=== PATIENT | female | born 1980 | race American Indian/Alaskan Native ===

== ENCOUNTER 2020-06-30 11:29 | Emergency (ER) | payer BC ==
--- NOTE | 2020-06-30 12:29 | EDM.PDOC ---
Scribed by Yesenia Limon 06/30/20 1229 for Rhiannon Piña MD ED HPI GENERAL MEDICAL PROBLEM - General Chief Complaint: ENT Problem Stated Complaint: HURTS TO SWALLOW Time Seen by Provider: 06/30/20 11:55 Source of Information: Reports: Patient, RN, RN Notes Reviewed History Limitations: Reports: No Limitations - History of Present Illness INITIAL COMMENTS - FREE TEXT/NARRATIVE: Patient presents to ED stating she has a sore throat. She waw exposed to strep throat on Wednesday. Woke up yesterday with some soreness on the right side and then woke up today with it on both sides. She has not tried to eat anything. She has been able to drink some fluids. No fevers or chills. No known other sick contracts. Onset Date: 06/29/20 Duration: Getting Worse Location: Reports: Other (throat) Quality: Reports: Ache Severity: Moderate Improves with: Reports: None Worsens with: Reports: None Associated Symptoms: Reports: No Other Symptoms Treatments [employer]: Reports: NSAIDS throat Pain Score (Numeric/FACES): 5 - Related Data Allergies Allergy/AdvReac Type Severity Reaction Status Date / Time No Known Allergies Allergy Verified 06/30/20 11:47 Home Meds: Home Meds Cholecalciferol (Vitamin D3) [Vitamin D3] 1,000 unit PO DAILY 06/30/20 [History] Rosuvastatin Calcium 10 mg PO BEDTIME 06/30/20 [History] Past Medical History HEENT History: Reports: None Cardiovascular History: Reports: None Respiratory History: Reports: None Gastrointestinal History: Reports: None Genitourinary History: Reports: None KNOWLEDGE ENGINEER History: Reports: None Musculoskeletal History: Reports: None Neurological History: Reports: None Psychiatric History: Reports: None Endocrine/Metabolic History: Reports: None Hematologic History: Reports: None Immunologic History: Reports: None Oncologic (Cancer) History: Reports: None Dermatologic History: Reports: None - Infectious Disease History Infectious Disease History: Reports: None - Past Surgical History HEENT Surgical History: Reports: None Cardiovascular Surgical History: Reports: None Respiratory Surgical History: Reports: None GI Surgical History: Reports: None Female Surgical History: Reports: None Musculoskeletal Surgical History: Reports: None Social & Family History - Family History Family Medical History: Noncontributory - Tobacco Use Smoking Status *Q: Current Every Day Smoker Years of Tobacco use: 22 Packs/Tins Daily: 1 Second Hand Smoke Exposure: Yes - Caffeine Use Caffeine Use: Reports: Coffee - Recreational Drug Use Recreational Drug Use: No ED ROS ENT - Review of Systems Review Of Systems: Comprehensive ROS is negative, except as noted in HPI. ED EXAM, ENT - Physical Exam Exam: See Below Exam Limited By: No Limitations General Appearance: Alert, WD/WN, No Apparent Distress Mouth/Throat: Other (very erythematous, swollen, exudates present. Tonsils were 3+. ) Head: Atraumatic, Normocephalic Neck: Normal Inspection Respiratory/Chest: No Respiratory Distress Cardiovascular: Regular Rate, Rhythm Neurological: Alert, Oriented Psychiatric: Normal Affect, Normal Mood Skin: Warm, Dry, Intact Lymphatic: No Adenopathy Course - Vital Signs Last Recorded V/S: Last Vital Signs Temp 98.6 F 06/30/20 11:40 Pulse 92 06/30/20 11:40 Resp 20 06/30/20 11:40 BP 166/98 H 06/30/20 11:40 Pulse Ox 97 06/30/20 11:40 - Orders/Labs/Meds Orders: Active Orders 24 hr Category Date Time Status CULTURE STREP A CONFIRMATION [RM] Stat Lab 06/30/20 11:56 Results STREP SCRN A RAPID W CULT CONF [RM] Stat Lab 06/30/20 12:00 Ordered Rapid strep: Negative. Departure - Departure Time of Disposition: 12:26 Disposition: Home, Self-Care 01 Condition: Good Clinical Impression: Viral pharyngitis - Discharge Information *PRESCRIPTION DRUG MONITORING PROGRAM REVIEWED*: Not Applicable *COPY OF PRESCRIPTION DRUG MONITORING REPORT IN PATIENT VICKIE: Not Applicable Instructions: Pharyngitis, [id number] Forms: ED Department Discharge Additional Instructions: Follow up with primary care provider in 3-5 days. Explained use of Tylenol and Ibuprofen. Advised antibiotics were not warranted at this time. Sepsis Event Note (ED) - Evaluation Sepsis Screening Result: No Definite Risk - Focused Exam Vital Signs: Vital Signs Temp Pulse Resp BP Pulse Ox 06/30/20 11:40 98.6 F 92 20 166/98 H 97 - My Orders Last 24 Hours: My Active Orders 06/30/20 11:56 CULTURE STREP A CONFIRMATION [RM] Stat 06/30/20 12:00 STREP SCRN A RAPID W CULT CONF [RM] Stat - Assessment/Plan Last 24 Hours: My Active Orders 06/30/20 11:56 CULTURE STREP A CONFIRMATION [RM] Stat 06/30/20 12:00 STREP SCRN A RAPID W CULT CONF [RM] Stat I have read and agree with the documentation that has been completed regarding this visit. By signing this record, I attest that the documentation was completed in my physical presence and is an accurate record of the encounter.
== END 2020-06-30 12:35 | disposition home or self-care (01) ==
LOC: DL.ED 11:29
DX: J02.9 Acute pharyngitis, unspecified (principal); F17.210 Nicotine dependence, cigarettes, uncomplicated
CPT/HCPCS: 87081; 87430; 99283